=== PATIENT | male | born 1960 | race Caucasian/White ===

== ENCOUNTER 2016-04-21 09:08 | Emergency (ER) | payer OTHER ==
[2016-04-21 09:41] VITALS: BP 135/64; PULSE 74; RESP 18; TEMP 98; O2SAT 97
--- NOTE | 2016-04-21 09:48 | UCPHY ---
H & P Patient Type: New Chief Complaint Nursing Narrative: c/o rt ear plugged x 1wk - unable to get into PCP for wks Time Seen by Provider: 04/21/16 09:37 HPI/ROS: CHIEF COMPLAINT: Right ear stickiness HISTORY OF PRESENT ILLNESS: Patient is a 56-year-old man who comes to the Urgent Care complaining of unusual sensation in his right ear canal. He states that when he tries to scratch it, it sticks together. He has not had any discharge. He has not had any fever. He has not had pain. No headache. No trauma. REVIEW OF SYSTEMS: Constitutional: denies: chills, fever, recent illness, recent injury EENTM: see HPI Respiratory: denies: cough, shortness of breath Cardiac: denies: chest pain, irregular heart rate, lightheadedness, palpitations Gastrointestinal/Abdominal: denies: abdominal pain, diarrhea, nausea, vomiting, blood streaked stools Genitourinary: denies: dysuria, frequency, hematuria, pain Musculoskeletal: denies: joint pain, muscle pain Skin: denies: lesions, rash, jaundice, bruising Neurological: denies: headache, numbness, paresthesia, tingling, dizziness, weakness Hematologic/Lymphatic: denies: blood clots, easy bleeding, easy bruising Immunologic/allergic: denies: HIV/AIDS, transplant EXAM: GENERAL: Well-appearing, well-nourished and in no acute distress. HEAD: Atraumatic, normocephalic. EYES: Pupils equal round and reactive to light, extraocular movements intact, sclera anicteric, conjunctiva are normal. ENT: Cerumen impaction on the right ear canal, nares patent, oropharynx clear without exudates. Moist mucous membranes. NECK: Normal range of motion, supple without lymphadenopathy or JVD. LUNGS: Breath sounds clear to auscultation bilaterally and equal. No wheezes rales or rhonchi. HEART: Regular rate and rhythm without murmurs, rubs or gallops. ABDOMEN: Soft, nontender, normoactive bowel sounds. No guarding, no rebound. No masses appreciated. BACK: No CVA tenderness, no spinal tenderness, step-offs or deformities EXTREMITIES: Normal range of motion, no pitting or edema. No clubbing or cyanosis. NEUROLOGICAL: Cranial nerves II through XII grossly intact. Normal speech, normal gait. 5/5 strength, normal movement in all extremities, normal sensation PSYCH: Normal mood, normal affect. SKIN: Warm, dry, normal turgor, no visible rashes or lesions. Source: Patient Exam Limitations: No limitations - Personal History Current Tetanus Diphtheria and Acellular Pertussis (TDAP): Yes - Medical/Surgical History Hx Asthma: No Hx Chronic Respiratory Disease: No Hx Diabetes: No Hx Cardiac Disease: No Hx Renal Disease: No Hx Cirrhosis: No Hx Alcoholism: No Other PMH: denies - Family History Significant Family History: No pertinent family hx - Social History Smoking Status: Never smoked Alcohol Use: Sober Drug Use: None Constitutional: Initial Vital Signs Temperature (C) 36.6 C 04/21/16 09:39 Heart Rate 74 04/21/16 09:39 Respiratory Rate 18 04/21/16 09:39 Blood Pressure 135/64 H 04/21/16 09:39 O2 Sat (%) 97 04/21/16 09:39 O2 Delivery Mode Room Air Allergies/Adverse Reactions: No Known Allergies Allergy (Unverified 04/21/16 09:39) Home Medications: Medication Instructions Recorded NK [No Known Home Meds] 04/21/16 Medical Decision Making Procedures: Cerumen disimpaction: Patient's ear was soaked with peroxide and water and then irrigated vigorously. Cerumen was removed successfully. The patient feels completely better. ED Course/Re-evaluation: Patient feels completely better after procedure. He is happy with this and declines any further workup or testing at this time. Discussed ways to avoid further impaction. Differential Diagnosis: Partial list of the Differential diagnosis considered include but were not limited to; otitis media, cerumen impaction, otitis externa and although unlikely based on the history and physical exam, I also considered malignant otitis, trauma. I discussed these differential diagnoses and the plan with the patient as well as the usual and expected course. The patient understands that the diagnosis is provisional and that in medicine we are not always correct and that further workup is often warranted. Usual and customary warnings were given. All of the patient's questions were answered. The patient was instructed to return to the emergency department should the symptoms at all worsen or return, otherwise to followup with the physician as we discussed. Departure - Departure Disposition: Home, Routine, Self-Care Clinical Impression: Cerumen impaction Qualifiers: Laterality: right Qualified Code(s): H61.21 - Impacted cerumen, right ear Condition: Fair Instructions: Cerumen Impaction (ED) Referrals: MD KATIA [Other] - As per Instructions - PQRS PQRS Measurement: 134: Depression screening and followup, PRIME ADLER-PHQ2 (12 years and older) Over the last 2 weeks, how often have you been bothered by any of the following problems? 1. Feeling down, depressed, or hopeless? 2. Little interest or pleasure in doing things? Patient answered no to both 1 and 2 130: Documentation of medications. Reviewed all patient medications, doses, route and frequency. 226: Do you smoke? No. 47: 65 and older: Advanced care planning. Patient designates surrogate decision maker as spouse . Patient has advanced directive. 51: 18 years old and older with diagnosis of COPD, spirometry performance. Spirometry not performed; equipment not available. 52: 18 years old and older with COPD and symptoms of COPD or FEV1<60% predicted prescribed a B Agonist. Not applicable
== END 2016-04-21 10:30 | disposition home or self-care (01) ==
LOC: CED 09:08
PROC: 3E1B78Z Irrigation of Ear using Irrigating Substance, Via Natural or Artificial Opening (ICD-10-PCS; principal; 2016-04-21)
DX: H61.21 Impacted cerumen, right ear (principal)
CPT/HCPCS: 69210-PO; 99204-PO; G0463-PO